=== PATIENT | female | born 1945 | race Hispanic/Latino ===

== ENCOUNTER → 2017-03-29 | Outpatient (CLI) | payer MEDICARE | END | disposition home or self-care (01) | LOC: RAH 10:00 | PROVIDERS: ATTEND Family Medicine | DX: G31.9 Degenerative disease of nervous system, unspecified (principal); H70.93 Unspecified mastoiditis, bilateral; I70.90 Unspecified atherosclerosis | CPT/HCPCS: 70544; 70551 ==

== ENCOUNTER 2017-09-03 09:56 | Emergency (ER) | payer MEDICARE ==
[2017-09-03] MEDS ORDERED: ASPIRIN 81MG TAB.CHEW ONE (10:16)
[2017-09-03 10:18] LABS: BASOPHILS % (AUTO) 0.5 % (0.0-5.0); EOSINOPHILS % (AUTO) 1.5 % (0.0-8.0); HEMATOCRIT 32.4 % (36-48); LYMPHOCYTES % (AUTO) 36.2 % (21.0-51.0); MEAN CORPUSCULAR HEMOGLOBIN 35.5 pg (27.0-33.0); MEAN CORPUSCULAR HGB CONC 34.2 g/dL (32.0-36.0); MEAN CORPUSCULAR VOLUME 103.8 fL (79-99); MONOCYTES % (AUTO) 7.8 % (3.0-13.0); PLATELET COUNT (AUTO) 134 K/uL (130-400); RED BLOOD CELL COUNT(AUTO) 3.12 MIL/uL (4.00-5.50); RED CELL DISTRIBUTION WIDTH 14.2 % (11.0-15.5); WHITE BLOOD COUNT (AUTO) 4.6 K/uL (4.8-10.8)
[2017-09-03 10:34] LABS: CREATININE 1.3 mg/dL (0.5-1.5)
[2017-09-03 10:39] LABS: INR 0.9 (0.85-1.15); PARTIAL THROMBOPLASTIN TIME 24.8 SEC (26.3-35.5); PROTHROMBIN TIME 9.5 SEC (9.6-11.6)
[2017-09-03] MEDS ORDERED: NITROGLYCERIN 0.4 MG SL TAB SL ONE (10:42)
[2017-09-03 10:48] LABS: ALBUMIN 3.5 g/dL (3.5-5.0); BILIRUBIN,TOTAL 0.2 mg/dL (0.2-1.0); CREATINE KINASE MB 1.7 ng/mL (0.5-3.6); TOTAL PROTEIN, SERUM 6.7 g/dL (6.0-8.3)
[2017-09-03] MEDS ORDERED: IOPAMIDOL-370 100 ML VIAL IV ONE (11:57)
[2017-09-03] MEDS ORDERED: MAG HYDROX/AL HYDROX/SIMETH ES 30 ML SUSP UDCUP ONE (13:14)
[2017-09-03] MEDS ORDERED: LIDOCAINE HCL 2% VISCOUS 15 ML UDCUP ONE (13:15)
== END 2017-09-03 15:02 | disposition home or self-care (01) ==
LOC: EDH 09:56
DX: R07.89 Other chest pain (principal); K44.9 Diaphragmatic hernia without obstruction or gangrene; M19.90 Unspecified osteoarthritis, unspecified site; K21.9 Gastro-esophageal reflux disease without esophagitis; I10 Essential (primary) hypertension; Z88.8 Allergy status to other drugs, medicaments and biological substances; Z88.5 Allergy status to narcotic agent; Z90.710 Acquired absence of both cervix and uterus; Z90.49 Acquired absence of other specified parts of digestive tract; Z98.890 Other specified postprocedural states
CPT/HCPCS: 36415; 71045; 71275; 80053; 82550; 82553; 83874; 84484 ×2; 85025; 85610; 85730; 93005 ×2; 94761; 99285; Q9967

== ENCOUNTER → 2018-04-27 | Outpatient (CLI) | payer MEDICARE ==
[~2018-04-27] MED LIST: IOHEXOL 350 MG/ML 100ML INFUS..BTL IV ONE
== END | disposition home or self-care (01) ==
LOC: RAH 08:01
PROVIDERS: ATTEND Internal Medicine Gastroenterology
DX: N28.1 Cyst of kidney, acquired (principal); K44.9 Diaphragmatic hernia without obstruction or gangrene; K57.90 Diverticulosis of intestine, part unspecified, without perforation or abscess without bleeding; I70.90 Unspecified atherosclerosis; M47.815 Spondylosis without myelopathy or radiculopathy, thoracolumbar region
CPT/HCPCS: 74178; Q9967

== ENCOUNTER 2018-06-19 08:56 | Observation (INO) | payer MEDICARE ==
[~2018-06-19] VITALS: Ht 162.6 cm; Wt 106.5 kg
[2018-06-19 09:50] LABS: BASOPHILS % (AUTO) 0.1 % (0.0-5.0); HEMATOCRIT 29.4 % (36-48); LYMPHOCYTES % (AUTO) 8.7 % (21.0-51.0); MEAN CORPUSCULAR HEMOGLOBIN 35.3 pg (27.0-33.0); MONOCYTES % (AUTO) 9.7 % (3.0-13.0); NEUTROPHILS % (AUTO) 80.5 % (40.0-77.0); PLATELET COUNT (AUTO) 108 K/uL (130-400); RED BLOOD CELL COUNT(AUTO) 2.75 MIL/uL (4.00-5.50); RED CELL DISTRIBUTION WIDTH 15.6 % (11.0-15.5)
[2018-06-19 10:08] LABS: INR 0.95 (0.85-1.15); PARTIAL THROMBOPLASTIN TIME 26.4 SEC (26.3-35.5)
[2018-06-19 10:26] LABS: ALBUMIN 3.4 g/dL (3.5-5.0); BILIRUBIN,TOTAL 1.3 mg/dL (0.2-1.0); CREATININE 3.7 mg/dL (0.5-1.5); TOTAL PROTEIN, SERUM 6.4 g/dL (6.0-8.3)
[2018-06-19] MEDS ORDERED: DEXTROSE 50%-WATER 50 ML DISP.SYRIN IV ONE (11:07)
[2018-06-19] MEDS ORDERED: SODIUM POLYSTYRENE SULFONATE 15 GM/60 ML ML ONE (11:07)
[2018-06-19] MEDS ORDERED: CALCIUM GLUCONATE 1 GM/10 ML VIAL IV ONE (11:07)
[2018-06-19] MEDS ORDERED: INSULIN HUMULIN R 100 UNIT/ML 3ML ONE (11:09)
[2018-06-19] MEDS ORDERED: IPRATROPIUM/ALBUTEROL SULFATE 3 ML SOLUTION IH ONE (14:54)
[2018-06-19 15:15] VITALS: BP 129/62
[2018-06-19 16:00] VITALS: BP 89/43
[2018-06-19] MEDS ORDERED: SODIUM CHLORIDE 0.9% 1000ML 1,000 ML IV SCH (16:00)
[2018-06-19] MEDS ORDERED: HYDRALAZINE HCL 20 MG/ML VIAL IV PRN (16:00)
[2018-06-19] MEDS ORDERED: RANI300C PO (16:29)
[2018-06-19] MEDS ORDERED: CYCL30DR OP (16:29)
[2018-06-19] MEDS ORDERED: BUTA-256 PO (16:29)
[2018-06-19] MEDS ORDERED: DICL2100G TP (16:29)
[2018-06-19] MEDS ORDERED: NAPR-1023 PO (16:29)
[2018-06-19] MEDS ORDERED: DONE10TA43 PO (16:29)
[2018-06-19] MEDS ORDERED: FERR325T22 PO (16:29)
[2018-06-19] MEDS ORDERED: LEVO50TA11 PO (16:29)
[2018-06-19] MEDS ORDERED: BENZ-51 PO (16:29)
[2018-06-19] MEDS ORDERED: PANT40TA25 PO (16:29)
[2018-06-19] MEDS ORDERED: ERGO500014 PO (16:29)
[2018-06-19] MEDS ORDERED: MEMA10TA20 PO (16:29)
[2018-06-19] MEDS ORDERED: OMEP40CA37 PO (16:29)
[2018-06-19] MEDS ORDERED: ASPI-1197 PO (16:29)
[2018-06-19] MEDS ORDERED: METO-409 PO (16:29)
[2018-06-19] MEDS ORDERED: SUCR1TAB PO (16:29)
[2018-06-19] MEDS ORDERED: FLUT16H NASAL (16:29)
[2018-06-19] MEDS ORDERED: ONDA4TAB9 PO (16:29)
[2018-06-19] MEDS ORDERED: FOLI1TAB85 PO (16:29)
[2018-06-19] MEDS ORDERED: CITA-107 PO (16:29)
[2018-06-19] MEDS ORDERED: ISOS30TA6 PO (16:29)
[2018-06-19] MEDS ORDERED: TRAZ-185 PO (16:29)
[2018-06-19] MEDS ORDERED: MECL-111 PO (16:29)
[2018-06-19] MEDS ORDERED: LORA2TAB2 PO (16:29)
[2018-06-19] MEDS ORDERED: POTA20TA82 PO (16:29)
[2018-06-19] MEDS ORDERED: VALS1TAB81 PO (16:29)
[2018-06-19] MEDS ORDERED: NITR0.4T50 SL (16:29)
[2018-06-19] MEDS ORDERED: GABA-531 PO (16:29)
[2018-06-19] MEDS ORDERED: ALBU18HF7 IN (16:29)
[2018-06-19] MEDS ORDERED: ROSU20TA30 PO (16:29)
[2018-06-19] MEDS ORDERED: SODIUM BICARB 50MEQ 50ML VIAL IV SCH (16:30)
[2018-06-19] MEDS: INSULIN R PO SS1 SQ SCH ×2 (16:30→20:34)
[2018-06-19] MEDS ORDERED: ASPIRIN 81MG TAB.CHEW PO SCH (16:45)
[2018-06-19] MEDS ORDERED: BENZONATATE 100 MG CAPSULE PO PRN (16:45)
[2018-06-19] MEDS ORDERED: NITROGLYCERIN 0.4 MG SL TAB SL PRN (16:45)
[2018-06-19] MEDS ORDERED: TRAZODONE HCL 50 MG TAB PO PRN (16:45)
[2018-06-19 16:50] LABS: ABG HCO3 15.7 mmol/L (21.0-28.0); ABG OXYGEN SATURATION 93.7 % (95.0-99.0); ABG PCO2 42 mmHg (32-45)
[2018-06-19 16:54] VITALS: BP 110/75
[2018-06-19 17:01] VITALS: BP 119/65
[2018-06-19] MEDS ORDERED: SODIUM BICARB 50MEQ 50ML VIAL IV ONE (17:15)
[2018-06-19] MEDS ORDERED: SODIUM CHLORIDE 0.9% 1000ML 500 ML IV ONE (17:15)
[2018-06-19] MEDS: HEPARIN SODIUM 5000UNIT/ML 1ML VIAL SQ SCH (17:26)
[2018-06-19] MEDS ORDERED: FOLIC ACID 1 MG TABLET PO SCH (17:45)
[2018-06-19] MEDS ORDERED: THIAMINE HCL 100 MG TABLET PO SCH (17:45)
[2018-06-19] MEDS: SODIUM BICARB 8.4% 50ML SYRING 200 MEQ in DEXTROSE 5%-WATER 950 ML IV SCH (18:16)
[2018-06-19 18:48] LABS: APPEARANCE,URINE Clear (CLEAR); BILIRUBIN,URINE Negative (NEGATIVE); COLOR,URINE Yellow (YELLOW); GLUCOSE, URINE (UA) Negative (NEGATIVE); KETONES,URINE Negative (NEGATIVE); LEUKOCYTE ESTERASE ,URINE Negative (NEGATIVE); NITRATE,URINE Negative (NEGATIVE); OCCULT BLOOD,URINE Negative (NEGATIVE); PROTEIN,URINE Negative (NEGATIVE); UROBILINOGEN,URINE 0.2 mg/dL (0.2-1.0)
[2018-06-19 18:56] LABS: AMPHET/METH SCREEN,URINE NEGATIVE (NEGATIVE); BARBITURATE SCREEN, URINE POSITIVE (NEGATIVE); BENZODIAZEPINES SCREEN,URINE NEGATIVE (NEGATIVE); CANNABINOID SCREEN,URINE NEGATIVE (NEGATIVE); COCAINE SCREEN,URINE NEGATIVE (NEGATIVE); OPIATE SCREEN,URINE NEGATIVE (NEGATIVE); PHENCYCLIDINE SCREEN,URINE NEGATIVE (NEGATIVE)
--- NOTE | 2018-06-19 19:15 | NUR ---
ASSESSMENT ASSUMED CARE. AA&OX2. REORIENTED TO DATE & TIME. NO DISTRESS NOTED. TELE STATUS. SINUS RHYTHM HR 68. DAUGHTER AT BEDSIDE. INSTRUCTED ON PLAN OF CARE. CLEMENT CATHETER SECURE & PATENT. CALL LIGHT WITHIN REACH. INSTRUCTED TO CALL FOR ASSISTANCE.
[2018-06-19 19:27] VITALS: BP 97/46
[2018-06-19] MEDS ORDERED: PHARMACY COMMUNICATION MISC SCH (20:15)
[2018-06-19] MEDS: SUCRALFATE 1 GM TABLET PO SCH (20:27)
[2018-06-19] MEDS: SODIUM BICARBONATE 650 MG TAB PO SCH (20:27)
[2018-06-19] MEDS: GABAPENTIN 100 MG CAPSULE PO SCH (20:27)
[2018-06-19] MEDS: DONEPEZIL HCL 5 MG TAB PO SCH (20:27)
[2018-06-19] MEDS ORDERED: METOPROLOL TARTRATE 25 MG TAB PO SCH (21:00)
[2018-06-19] MEDS: **HM**(Cyclosporine (Restasis) 1 EACH OP SCH (21:00)
[2018-06-19] MEDS: MEMANTINE HCL 5 MG TABLET PO SCH (21:44)
--- NOTE | 2018-06-20 | NUR ---
ASSESSMENT RESTING, EYES CLOSED. NO DISTRESS NOTED. DAUGHTER NEXT TO PATIET'S BED ON PULL OUT COUCH. LIGHTS DIMMED.
[2018-06-20] MEDS: ACETAMINOPHEN 325 MG TAB PO PRN ×2 (00:13→20:57)
[2018-06-20 00:54] VITALS: BP 105/59
[2018-06-20 04:00] VITALS: BP 108/59
[2018-06-20 04:07] LABS: HEMATOCRIT 24.9 % (36-48); MEAN CORPUSCULAR HEMOGLOBIN 35.3 pg (27.0-33.0); MEAN CORPUSCULAR HGB CONC 33.6 g/dL (32.0-36.0); MEAN CORPUSCULAR VOLUME 104.9 fL (79-99); PLATELET COUNT (AUTO) 90 K/uL (130-400); RED BLOOD CELL COUNT(AUTO) 2.37 MIL/uL (4.00-5.50); RED CELL DISTRIBUTION WIDTH 15.5 % (11.0-15.5); WHITE BLOOD COUNT (AUTO) 5.2 K/uL (4.8-10.8)
[2018-06-20 04:15] LABS: INR 0.97 (0.85-1.15); PROTHROMBIN TIME 10.2 SEC (9.6-11.6)
[2018-06-20 04:34] LABS: CARBON DIOXIDE 26 mmol/L (21-32); CHLORIDE 107 mmol/L (101-111); GLOMERULAR FILTR. RATE CALC 16 mL/min (>60); GLUCOSE,RANDOM 107 mg/dL (70-105); MYOGLOBIN 384 ng/mL (10-92); PHOSPHORUS 5.3 mg/dL (2.5-4.9); POTASSIUM 4.5 mmol/L (3.5-5.1); SODIUM SERUM 143 mmol/L (136-145); THYROID STIMULATING HORMONE 0.67 uIU/mL (0.36-3.74); TROPONIN I < 0.04 ng/mL (0.00-0.06); UREA NITROGEN, BLOOD 63 mg/dL (7-18)
[2018-06-20] MEDS: HEPARIN SODIUM 5000UNIT/ML 1ML VIAL SQ SCH ×2 (04:35→16:38)
[2018-06-20 04:40] LABS: % IRON SATURATION 8.9 % (22-44)
[2018-06-20 04:43] LABS: CREATINE KINASE, TOTAL 767 U/L (21-232)
[2018-06-20] MEDS: LEVOTHYROXINE 50 MCG TABLET PO SCH ×2 (05:56→07:13)
[2018-06-20] MEDS: SUCRALFATE 1 GM TABLET PO SCH ×4 (07:12→20:55)
[2018-06-20] MEDS: INSULIN R PO SS1 SQ SCH ×4 (07:18→20:43)
[2018-06-20] MEDS ORDERED: LEVOTHYROXINE 50 MCG TABLET PO SCH (07:30)
--- NOTE | 2018-06-20 07:30 | NUR ---
PT IS AWAKE ALERT AND ORIENTED X3, PT HAS BEEN WITHOUT ANY COMPLAINTS AND STATES THAT SHE THINKS SHE IS GOING TO BE DISCHARGED TODAY. PT REMAINS WITH CLEMENT CATHETER AND HAS CLEAR URINE.
[2018-06-20 08:01] VITALS: BP 116/66
[2018-06-20] MEDS: CITALOPRAM 20 MG TABLET PO SCH (08:12)
[2018-06-20] MEDS: ISOSORBIDE MONO 30MG TAB SR PO SCH (08:12)
[2018-06-20] MEDS: FOLIC ACID/VITAMIN B COMP W-C 1 MG CAPSULE PO SCH (08:13)
[2018-06-20] MEDS: SODIUM BICARBONATE 650 MG TAB PO SCH ×3 (08:13→20:58)
[2018-06-20] MEDS: PANTOPRAZOLE SODIUM 40 MG TABLET.DR PO SCH (08:13)
[2018-06-20] MEDS: FOLIC ACID 1 MG TABLET PO SCH (08:13)
[2018-06-20] MEDS: GABAPENTIN 100 MG CAPSULE PO SCH ×2 (08:13→20:55)
[2018-06-20] MEDS: THIAMINE HCL 100 MG TABLET PO SCH (08:14)
[2018-06-20] MEDS ORDERED: NON-FORMULARY MEDICATION 1 EACH (Metoprolol Succinate 150 MG) PO SCH (09:00)
[2018-06-20] MEDS: **HM**(Cyclosporine (Restasis) 1 EACH OP SCH ×2 (09:00→21:00)
[2018-06-20 09:34] VITALS: BP 142/73
[2018-06-20] MEDS: SODIUM BICARB 8.4% 50ML SYRING 200 MEQ in DEXTROSE 5%-WATER 950 ML IV SCH (10:57)
--- NOTE | 2018-06-20 11:15 | NUR ---
PT IS TO BE TRANSFERRED TO ROOM 228, AND REPORT WILL BE GIVEN TO MIMI ANNA.
[2018-06-20] MEDS: MEMANTINE HCL 5 MG TABLET PO SCH ×2 (11:37→20:55)
--- NOTE | 2018-06-20 11:40 | NUR ---
ARRIVED TO ROOM 228 PT IS AAOX4 DENIES CP DENIES SOB DENIES NV NO COMPLAINTS SITTING UPRIGHT AT BEDSIDE. FAMILY IS AT BEDSIDE, CALL LIGHT WITHIN REACH.
[2018-06-20] MEDS ORDERED: COMPOUND IV MISC 1 EACH IVSOLN MISC PRN (14:00)
[2018-06-20 15:36] VITALS: BP 110/40
[2018-06-20 19:59] VITALS: BP 137/99
[2018-06-20] MEDS: DONEPEZIL HCL 5 MG TAB PO SCH (20:55)
[2018-06-20] MEDS ORDERED: IRON SUCROSE COMPLEX 100 MG in SODIUM CHLORIDE 0.9% 50 ML IV SCH (21:00)
--- NOTE | 2018-06-20 21:20 | NUR ---
NEW IV STARTED 20G TO LEFT FOREARM.
--- NOTE | 2018-06-20 22:00 | NUR ---
PT STATS HEADACHE. GIVEN TYLENOL PRN. REQUESTED TRAZADONE FOR SLEEP. PT STABLE. STATES FEELING MUCH BETTER COMPARED TO ADMISSION DATE. ABLE TO TAKE MEDICATIONS DIRECTED. ABLE TO AMBULATE WITH MINIMAL ASSIST.
[2018-06-21 01:43] VITALS: BP 133/77
[2018-06-21 04:21] LABS: HEMATOCRIT 24.3 % (36-48); MEAN CORPUSCULAR HEMOGLOBIN 35.9 pg (27.0-33.0); MEAN CORPUSCULAR HGB CONC 34.2 g/dL (32.0-36.0); MEAN CORPUSCULAR VOLUME 104.8 fL (79-99); NUCLEATED RED BLOOD CELLS 0.1 % (0.0-0.19); PLATELET COUNT (AUTO) 98 K/uL (130-400); RED BLOOD CELL COUNT(AUTO) 2.32 MIL/uL (4.00-5.50); RED CELL DISTRIBUTION WIDTH 15.1 % (11.0-15.5); WHITE BLOOD COUNT (AUTO) 4.2 K/uL (4.8-10.8)
[2018-06-21 04:27] VITALS: BP 130/68
[2018-06-21 05:13] LABS: ALBUMIN 2.6 g/dL (3.5-5.0); BILIRUBIN,TOTAL 0.2 mg/dL (0.2-1.0); CREATININE 1.4 mg/dL (0.5-1.5); MAGNESIUM 2.3 mg/dL (1.80-2.40); PHOSPHORUS 2.9 mg/dL (2.5-4.9); POTASSIUM 4.2 mmol/L (3.5-5.1); TOTAL PROTEIN, SERUM 5.5 g/dL (6.0-8.3)
[2018-06-21] MEDS: HEPARIN SODIUM 5000UNIT/ML 1ML VIAL SQ SCH (05:59)
[2018-06-21] MEDS: INSULIN R PO SS1 SQ SCH ×2 (06:32→11:30)
[2018-06-21] MEDS: LEVOTHYROXINE 50 MCG TABLET PO SCH (06:32)
[2018-06-21] MEDS: SUCRALFATE 1 GM TABLET PO SCH ×2 (06:32→11:44)
[2018-06-21] MEDS: THIAMINE HCL 100 MG TABLET PO SCH (07:10)
[2018-06-21] MEDS: PANTOPRAZOLE SODIUM 40 MG TABLET.DR PO SCH (07:10)
[2018-06-21] MEDS: GABAPENTIN 100 MG CAPSULE PO SCH (07:10)
[2018-06-21] MEDS: ISOSORBIDE MONO 30MG TAB SR PO SCH (07:10)
[2018-06-21] MEDS: **HM**(Cyclosporine (Restasis) 1 EACH OP SCH (07:10)
[2018-06-21] MEDS: FOLIC ACID 1 MG TABLET PO SCH (07:10)
[2018-06-21] MEDS: SODIUM BICARBONATE 650 MG TAB PO SCH (07:10)
[2018-06-21] MEDS: MEMANTINE HCL 5 MG TABLET PO SCH (07:10)
[2018-06-21] MEDS: FOLIC ACID/VITAMIN B COMP W-C 1 MG CAPSULE PO SCH (07:10)
[2018-06-21] MEDS: CITALOPRAM 20 MG TABLET PO SCH (07:10)
--- NOTE | 2018-06-21 08:00 | NUR ---
ASSESSMENT PT IS AAOX4 DENIES CP DENIES SOB DENIES NV NO COMPLAINTS SITTING UPRIGHT IN BED. AM MEDS TAKEN. CALL LIGHT WITHIN REACH.
[2018-06-21 08:06] VITALS: BP 166/81
[2018-06-21] MEDS ORDERED: LORA2TAB2 PO (08:40)
[2018-06-21 11:34] VITALS: BP 158/93
[2018-06-21] MEDS ORDERED: PHARMACY COMMUNICATION MISC SCH (12:45)
--- NOTE | 2018-06-21 12:47 | NUR ---
MD ROUNDS DR SAHU AND DR FUNES ROUNDED. OK TO DC HOME, PENDING 1X DOSE VENOFER 300MG PER DR SAHU. PATIENT AWARE AND AGREES.
--- NOTE | 2018-06-21 12:50 | NUR ---
DC PLAN VISITED WITH PATIENT. PATIENT LIVES ALONE. FAMILY HELPS. SEMI INDEPENDENT ABLE TO PERFORM ADL'S. PATIENT HAS PROVIDER 4 HRS A DAY BY DAUGHTER. NO DME'S. FEELS SAFE TO RETURN HOME. Addendum: 06/21/18 at 1252 by MARK LUEVANO RN CM Amended: Links added.
[2018-06-21] MEDS: IRON SUCROSE COMPLEX 300 MG in SODIUM CHLORIDE 0.9% 100 ML IVP SCH ×2 (13:25→15:03)
--- NOTE | 2018-06-21 15:35 | NUR ---
DC TO HOME ALL QUESTIONS ANSWERED, PIV REMOVED CATH TIP INTACT. TELE PACK REMOVED. AGREES TO TAKE MEDS ORDERED AND FOLLOW UP WITH MD ORDERED. DOWN VIA WC TO PRIVATE VEHICLE.
== END 2018-06-21 15:45 | disposition home or self-care (01) ==
LOC: EDH 08:56 → EDHIP 13:35 → 2CH 15:17 → 2DH 06-20 11:41
PROVIDERS: ADMIT Internal Medicine Critical Care Medicine; ATTEND Internal Medicine Critical Care Medicine
DX: N17.9 Acute kidney failure, unspecified (principal); N18.9 Chronic kidney disease, unspecified; I12.9 Hypertensive chronic kidney disease with stage 1 through stage 4 chronic kidney disease, or unspecified chronic kidney disease; E11.21 Type 2 diabetes mellitus with diabetic nephropathy; E11.22 Type 2 diabetes mellitus with diabetic chronic kidney disease; R55 Syncope and collapse; I25.10 Atherosclerotic heart disease of native coronary artery without angina pectoris; D50.9 Iron deficiency anemia, unspecified; E03.9 Hypothyroidism, unspecified; E66.9 Obesity, unspecified; E86.0 Dehydration; E87.2 Acidosis; E87.5 Hyperkalemia; M62.82 Rhabdomyolysis; I42.9 Cardiomyopathy, unspecified; J42 Unspecified chronic bronchitis; G47.30 Sleep apnea, unspecified; F03.90 Unspecified dementia, unspecified severity, without behavioral disturbance, psychotic disturbance, mood disturbance, and anxiety; Z82.49 Family history of ischemic heart disease and other diseases of the circulatory system; Z90.710 Acquired absence of both cervix and uterus; Z90.49 Acquired absence of other specified parts of digestive tract; Z79.899 Other long term (current) drug therapy; Z96.659 Presence of unspecified artificial knee joint
CPT/HCPCS: 36415 ×3; 36600; 70450; 71045; 76700; 80048; 80053 ×2; 80305; 81003; 82550 ×3; 82803; 82948 ×8; 83540; 83550; 83605; 83690; 83735 ×2; 83874; 84100 ×2; 84443; 84484 ×2; 85025; 85027 ×2; 85610 ×2; 85730; 93005; 94640; 96361; 96365; 96366 ×3; 96372 ×3; 96376; 99291; A4357; G0378 ×50; J0610; J1644 ×4; J1756 ×3; J1815; J3490 ×3; J7030; J7070 ×2

== ENCOUNTER 2018-07-26 08:40 | Emergency (ER) | payer MEDICARE ==
[~2018-07-26 08:40] MED LIST changes: +ALBU18HF7 IN; +ASPI-1197 PO; +BENZ-51 PO; +CITA-107 PO; +CYCL30DR OP; +DONE10TA43 PO; +FLUT16H NASAL; +FOLI1TAB85 PO; -IOHEXOL 350 MG/ML 100ML INFUS..BTL IV ONE; +ISOS30TA6 PO; +LEVO50TA11 PO; +LORA2TAB2 PO; +MEMA10TA20 PO; +METO-409 PO; +NITR0.4T50 SL; +OMEP40CA37 PO; +ONDA4TAB9 PO; +SUCR1TAB PO; +TRAZ-185 PO
[2018-07-26 09:00] LABS: BASOPHILS % (AUTO) 0.3 % (0.0-5.0); EOSINOPHILS % (AUTO) 0.3 % (0.0-8.0); LYMPHOCYTES % (AUTO) 6.9 % (21.0-51.0); MEAN CORPUSCULAR HEMOGLOBIN 35.2 pg (27.0-33.0); MEAN CORPUSCULAR HGB CONC 33.8 g/dL (32.0-36.0); MEAN CORPUSCULAR VOLUME 104.1 fL (79-99); MONOCYTES % (AUTO) 4.6 % (3.0-13.0); NEUTROPHILS % (AUTO) 87.9 % (40.0-77.0); PLATELET COUNT (AUTO) 117 K/uL (130-400); RED BLOOD CELL COUNT(AUTO) 3.08 MIL/uL (4.00-5.50); WHITE BLOOD COUNT (AUTO) 4.7 K/uL (4.8-10.8)
[2018-07-26 09:08] LABS: CREATININE 1.1 mg/dL (0.5-1.5); POTASSIUM 3.6 mmol/L (3.5-5.1)
[2018-07-26 09:14] LABS: ALBUMIN 3.4 g/dL (3.5-5.0); BILIRUBIN,DIRECT 0.1 mg/dL (0.0-0.3); BILIRUBIN,TOTAL 0.4 mg/dL (0.2-1.0); TOTAL PROTEIN, SERUM 6.7 g/dL (6.0-8.3)
[2018-07-26] MEDS ORDERED: ONDANSETRON HCL 4 MG/2 ML VIAL ONE (09:16)
[2018-07-26] MEDS ORDERED: DICYCLOMINE HCL 10 MG/ML 2ML AMP IM ONE (09:17)
== END 2018-07-26 11:49 | disposition home or self-care (01) ==
LOC: EDH 08:40
DX: K52.9 Noninfective gastroenteritis and colitis, unspecified (principal); I10 Essential (primary) hypertension; K21.9 Gastro-esophageal reflux disease without esophagitis; M19.90 Unspecified osteoarthritis, unspecified site; Z90.710 Acquired absence of both cervix and uterus; Z88.2 Allergy status to sulfonamides; Z88.5 Allergy status to narcotic agent
CPT/HCPCS: 36415; 80048; 80076; 83690; 85025; 96361; 96374; 96375; 99284; J0500; J2405

== ENCOUNTER 2019-08-11 13:32 | Emergency (ER) | payer OTHER, MEDICARE ==
[2019-08-11] MEDS ORDERED: SODIUM CHLORIDE 0.9% 500ML 500 ML IV ONE (13:33)
[2019-08-11] MEDS ORDERED: NITROGLYCERIN 1GM/1 INCH PACKET TD ONE (13:44)
[2019-08-11] MEDS ORDERED: MECLIZINE HCL 25 MG TABLET ONE (14:19)
== END 2019-08-11 15:46 | disposition home or self-care (01) ==
LOC: EDH 13:32
DX: I95.2 Hypotension due to drugs (principal); T46.5X5A Adverse effect of other antihypertensive drugs, initial encounter; R21 Rash and other nonspecific skin eruption; D64.9 Anemia, unspecified; N19 Unspecified kidney failure; I10 Essential (primary) hypertension; K21.9 Gastro-esophageal reflux disease without esophagitis; M19.90 Unspecified osteoarthritis, unspecified site; F03.90 Unspecified dementia, unspecified severity, without behavioral disturbance, psychotic disturbance, mood disturbance, and anxiety; Z88.2 Allergy status to sulfonamides; Z88.6 Allergy status to analgesic agent; Y92.89 Other specified places as the place of occurrence of the external cause
CPT/HCPCS: 36415; 80048; 85025; 93005; 99284; J7040

== ENCOUNTER → 2020-07-12 | Outpatient (CLI) | payer OTHER, MEDICARE ==
[~2020-07-12] MED LIST changes: -ALBU18HF7 IN; +ALBU8.5H8 IH; -BENZ-51 PO; -CITA-107 PO; +CITA40TA14 PO; +COLE1TAB2 PO; -CYCL30DR OP; +DRISDOL PO; +FERR325T22 PO; -FLUT16H NASAL; +FOLI0.8T3 PO; -FOLI1TAB85 PO; +HYOS-28 PO; -ISOS30TA6 PO; +ISOS30TA92 PO; -LORA2TAB2 PO; +LORA2TAB80 PO; -MEMA10TA20 PO; +MEMA10TA55 PO; +METO-391 PO; -METO-409 PO; -OMEP40CA37 PO; -ONDA4TAB9 PO; +PANT40TA PO; +ROSU20TA31 PO; -SUCR1TAB PO; +TRAM50TA4 PO; -TRAZ-185 PO; +TRAZ-187 PO; +VITA100T5 PO
== END | disposition home or self-care (01) ==
LOC: RAH 08:39
PROVIDERS: ATTEND Student in an Organized Health Care Education/Training Program
DX: K21.9 Gastro-esophageal reflux disease without esophagitis (principal); K44.9 Diaphragmatic hernia without obstruction or gangrene
CPT/HCPCS: 74240

== ENCOUNTER 2021-01-04 09:28 | Emergency (ER) | payer OTHER, MEDICARE ==
[~2021-01-04] VITALS: Ht 162.6 cm; Wt 101.6 kg
[2021-01-04 09:55] LABS: APPEARANCE,URINE Cloudy (CLEAR); BILIRUBIN,URINE Small (NEGATIVE); COLOR,URINE Dark Yellow (YELLOW); GLUCOSE, URINE (UA) Negative (NEGATIVE); KETONES,URINE Trace mg/dL (NEGATIVE); LEUKOCYTE ESTERASE ,URINE Trace (NEGATIVE); NITRATE,URINE Negative (NEGATIVE); OCCULT BLOOD,URINE Nonhemolyzed Trace (NEGATIVE); PH,URINE 5.5 (5.0-8.0); PROTEIN,URINE 300 mg/dL (NEGATIVE)
[2021-01-04 10:10] LABS: BASOPHILS % (AUTO) 0.3 % (0.0-5.0); EOSINOPHILS % (AUTO) 1.2 % (0.0-8.0); HEMATOCRIT 33.2 % (36-48); LYMPHOCYTES % (AUTO) 41.8 % (21.0-51.0); MEAN CORPUSCULAR HGB CONC 33.1 g/dL (32.0-36.0); MEAN CORPUSCULAR VOLUME 102.5 fL (79-99); MONOCYTES % (AUTO) 7.2 % (3.0-13.0); NEUTROPHILS % (AUTO) 49.5 % (40.0-77.0); PLATELET COUNT (AUTO) 131 K/uL (130-400); RED BLOOD CELL COUNT(AUTO) 3.24 MIL/uL (4.00-5.50); RED CELL DISTRIBUTION WIDTH 14.7 % (11.0-15.5); WHITE BLOOD COUNT (AUTO) 3.5 K/uL (4.8-10.8)
[2021-01-04 10:15] LABS: CREATININE 1.2 mg/dL (0.5-1.5); POTASSIUM 3.6 mmol/L (3.5-5.1)
[2021-01-04 10:19] LABS: ALBUMIN 3.9 g/dL (3.5-5.0); BILIRUBIN,TOTAL 0.3 mg/dL (0.2-1.0); TOTAL PROTEIN, SERUM 7.2 g/dL (6.0-8.3)
[2021-01-04 10:30] LABS: BACTERIA,URINE Few /HPF (None Seen); RBC,URINE 0-1 /HPF (0-1)
[2021-01-04] MEDS ORDERED: ONDANSETRON 4MG INJ IVP SCH (10:30)
[2021-01-04] MEDS ORDERED: 0.9% NACL 250ML 250 ML IV SCH (10:30)
[2021-01-04] MEDS ORDERED: FENTANYL 2500MCG+NS 250ML 250 ML IV SCH (10:30)
[2021-01-04] MEDS ORDERED: FENTANYL CITRATE PF 50 MCG/1 ML 2ML VIAL IVP SCH ×2 (10:30→11:00)
[2021-01-04] MEDS ORDERED: FENTANYL CITRATE PF 50 MCG/1 ML 2ML VIAL ONE (10:42)
[2021-01-04] MEDS ORDERED: ONDA4TAB10 PO (11:19)
[2021-01-04 11:52] VITALS: BP 156/80
== END 2021-01-04 11:54 | disposition home or self-care (01) ==
LOC: EDH 09:28
DX: E86.0 Dehydration (principal); R11.2 Nausea with vomiting, unspecified; R10.9 Unspecified abdominal pain; R07.89 Other chest pain; E66.9 Obesity, unspecified; E03.9 Hypothyroidism, unspecified; E78.00 Pure hypercholesterolemia, unspecified; I11.0 Hypertensive heart disease with heart failure; I50.9 Heart failure, unspecified; J44.9 Chronic obstructive pulmonary disease, unspecified; Z68.38 Body mass index [BMI] 38.0-38.9, adult; Z88.5 Allergy status to narcotic agent; Z88.2 Allergy status to sulfonamides; Z90.49 Acquired absence of other specified parts of digestive tract; Z79.899 Other long term (current) drug therapy; Z79.82 Long term (current) use of aspirin
CPT/HCPCS: 36415; 71045; 74176; 80053; 81001; 82150; 82550; 83690; 83880; 84484; 85025; 93005; 96374; 96375; 99285; J2405; J3010

== ENCOUNTER → 2022-03-11 | Outpatient (CLI) | payer OTHER, MEDICARE ==
[~2022-03-11] MED LIST changes: +ONDA4TAB10 PO
== END | disposition home or self-care (01) ==
LOC: RAH 08:43
PROVIDERS: ATTEND Internal Medicine
DX: K21.9 Gastro-esophageal reflux disease without esophagitis (principal)
CPT/HCPCS: 74240

== ENCOUNTER 2023-01-25 06:13 | Day surgery (SDC) | payer OTHER, MEDICARE ==
[2023-01-21 10:34] LABS: ADD UA MICROSCOPIC YES
[2023-01-21 10:36] VITALS: BP 174/92; PULSE 52; RESP 17
[2023-01-21 10:38] LABS: APPEARANCE,URINE CLEAR (CLEAR); BACTERIA,URINE RARE /HPF (None Seen); BILIRUBIN,URINE NEGATIVE (NEGATIVE); COLOR,URINE YELLOW (YELLOW); GLUCOSE, URINE (UA) NEGATIVE (NEGATIVE); KETONES,URINE NEGATIVE (NEGATIVE); LEUKOCYTE ESTERASE ,URINE 75 Leu/uL (NEGATIVE); MUCUS,URINE RARE LPF (None Seen); NITRATE,URINE NEGATIVE (NEGATIVE); OCCULT BLOOD,URINE NEGATIVE (NEGATIVE); PH,URINE 6.5 (5.0-8.0); PROTEIN,URINE 70 mg/dL (NEGATIVE); SQUAMOUS EPITHELIAL CELL,UR MOD /HPF (0-2); UNCLASSIFIED CRYSTAL 3 /HPF (None Seen); UROBILINOGEN,URINE 0.2 mg/dL (0.2-1.0)
[2023-01-21 10:42] LABS: BASOPHILS # (AUTO) 0.01 K/uL (0.00-0.20); BASOPHILS % (AUTO) 0.2 % (0.0-5.0); EOSINOPHILS # (AUTO) 0.04 K/uL (0.00-0.70); LYMPHOCYTES # (AUTO) 1.3 K/uL (1.0-4.8); LYMPHOCYTES % (AUTO) 32.4 % (21.0-51.0); MEAN CORPUSCULAR HGB CONC 31.8 g/dL (32.0-36.0); MEAN CORPUSCULAR VOLUME 103.8 fL (79-99); MONOCYTES # (AUTO) 0.4 K/uL (0.1-1.0); MONOCYTES % (AUTO) 9.5 % (3.0-13.0); NEUTROPHILS # (AUTO) 2.3 K/uL (1.8-7.7); NEUTROPHILS % (AUTO) 56.9 % (40.0-77.0); PLATELET COUNT (AUTO) 130 K/uL (130-400); RED BLOOD CELL COUNT(AUTO) 3.18 MIL/uL (4.00-5.50); RED CELL DISTRIBUTION WIDTH 14.3 % (11.0-15.5); WHITE BLOOD COUNT (AUTO) 4.1 K/uL (4.8-10.8)
[2023-01-21 10:52] LABS: CREATININE 1.2 mg/dL (0.5-1.5); POTASSIUM 4.1 mmol/L (3.5-5.1)
[2023-01-21 10:55] LABS: INR 0.94 (0.85-1.15); PROTHROMBIN TIME 10.9 SEC (9.6-11.6)
[2023-01-21 10:57] LABS: PARTIAL THROMBOPLASTIN TIME 29.9 SEC (26.3-35.5)
[2023-01-21 11:30] LABS: B-TYPE NATRIURETIC PEPTIDE 78 pg/mL (0-100)
[2023-01-25] VITALS (7 sets, daily range): BP systolic 111–190; BP diastolic 63–91; PULSE 46–59; RESP 14–18
[~2023-01-25] VITALS: Ht 162.6 cm; Wt 97.8 kg
[~2023-01-25 06:13] MED LIST changes: +ACET-2743 PO; +AEC81 PO; -ASPI-1197 PO; +CHOL2000 PO; -COLE1TAB2 PO; +DOCU100C33 PO; -DONE10TA43 PO; -DRISDOL PO; +GARL1000 PO; -HYOS-28 PO; -ISOS30TA92 PO; +ISOS60TA77 PO; +LEVO50CA4 PO; -LEVO50TA11 PO; -LORA2TAB80 PO; +MECL-226 PO; +OMEG100014 PO; +ONDA-104 SL; -ONDA4TAB10 PO; -PANT40TA PO; +POTA-364 PO; -ROSU20TA31 PO; -TRAM50TA4 PO; -TRAZ-187 PO; -VITA100T5 PO
[2023-01-25] MEDS ORDERED: 0.9%NACL 1000ML 1,000 ML IV ONE (07:36)
[2023-01-25] MEDS ORDERED: FENTANYL CITRATE PF 50 MCG/1 ML 2ML VIAL ONE (08:48)
[2023-01-25] MEDS ORDERED: VERAPAMIL HCL 2.5 MG/ML VIAL ONE (08:49)
[2023-01-25] MEDS ORDERED: MIDAZOLAM HCL 1 MG/ML 2ML VIAL ONE (08:49)
[2023-01-25] MEDS ORDERED: HEPARIN 10,000 UNIT/10ML (1,000 UNIT/ML) VIAL ONE (08:49)
[2023-01-25] MEDS ORDERED: LIDOCAINE HCL-MPF 2% 5ML VIAL ONE (08:50)
[2023-01-25] MEDS ORDERED: IOHEXOL 350 MG/ML 100ML INFUS..BTL IV ONE (08:50)
[2023-01-25] MEDS ORDERED: ATROPINE 1MG SYG IVP ONE (09:00)
[2023-01-25] MEDS ORDERED: IOHEXOL-350 50ML VIAL IV ONE (09:32)
[2023-01-25] MEDS ORDERED: 0.9%NACL 1000ML 1,000 ML IV SCH (10:00)
[2023-01-25] MEDS ORDERED: ACETAMINOPHEN WITH CODEINE 1 TAB TAB PO PRN (10:00)
[2023-01-25] MEDS ORDERED: PHARMACY COMMUNICATION MISC SCH (10:30)
== END 2023-01-25 12:10 | disposition home or self-care (01) ==
LOC: DAH 06:13
PROVIDERS: ATTEND Internal Medicine
DX: I25.119 Atherosclerotic heart disease of native coronary artery with unspecified angina pectoris (principal); I10 Essential (primary) hypertension; R00.1 Bradycardia, unspecified; G47.33 Obstructive sleep apnea (adult) (pediatric); E03.9 Hypothyroidism, unspecified; G43.909 Migraine, unspecified, not intractable, without status migrainosus; Z79.899 Other long term (current) drug therapy; Z79.01 Long term (current) use of anticoagulants; Z88.6 Allergy status to analgesic agent; Z88.2 Allergy status to sulfonamides
CPT/HCPCS: 80048; 83880; 85025; 85610; 85730; 87088; 81001 ×2; 36415; 71045; 93005; 93458; C1769 ×2; C1894; J3010; J7030; J1644 ×2; J2250; J3490 ×2; Q9967 ×2; A4215; A4222; A4221; A4663; A4216; A4606; Q9965; A4223 ×3; 99156; 99157; J0461

== ENCOUNTER 2023-03-29 11:06 | Emergency (ER) | payer OTHER, MEDICARE ==
[~2023-03-29] VITALS: Ht 162.6 cm; Wt 98.4 kg
[2023-03-29 11:46] VITALS: BP 169/92; PULSE 54; RESP 16; O2SAT 95
== END 2023-03-29 15:33 | disposition home or self-care (01) ==
LOC: EDH 11:06
DX: S80.01XA Contusion of right knee, initial encounter (principal); J44.9 Chronic obstructive pulmonary disease, unspecified; E78.00 Pure hypercholesterolemia, unspecified; E03.9 Hypothyroidism, unspecified; I10 Essential (primary) hypertension; Z79.82 Long term (current) use of aspirin; Z79.890 Hormone replacement therapy; Z79.899 Other long term (current) drug therapy; Z88.2 Allergy status to sulfonamides; Z88.5 Allergy status to narcotic agent; Z90.710 Acquired absence of both cervix and uterus; W18.39XA Other fall on same level, initial encounter; Y93.89 Activity, other specified; Y92.89 Other specified places as the place of occurrence of the external cause; Y99.8 Other external cause status
CPT/HCPCS: 73562; 93971

== ENCOUNTER 2024-09-29 13:32 | Emergency (ER) | payer OTHER, MEDICAID ==
[~2024-09-29] VITALS: Ht 162.6 cm; Wt 98.0 kg
[~2024-09-29 13:32] MED LIST changes: -AEC81 PO; -ALBU8.5H8 IH; +AMLO2.5T4 PO; +ASPI-1012 PO; +BACL5TAB PO; -CHOL2000 PO; +CITA-108 PO; -CITA40TA14 PO; -DOCU100C33 PO; +DONE10TA43 PO; +FE F1CAP8 PO; -FERR325T22 PO; -FOLI0.8T3 PO; -GARL1000 PO; -ISOS60TA77 PO; -LEVO50CA4 PO; +LEVO50CA5 PO; -MECL-226 PO; -MEMA10TA55 PO; -METO-391 PO; +MUPI15CR12 TP; -OMEG100014 PO; -ONDA-104 SL; +POTA-202 PO; -POTA-364 PO; +PROP20TA7 PO; +ROSU20TA98 PO; +SUMA50TA PO; +TRAZ150T79 PO
[2024-09-29] MEDS ORDERED: DICL20GE TP (13:51)
--- NOTE | 2024-09-29 13:51 | ERN ---
General Chief Complaint: Numbness Stated Complaint: BILATERAL HAND NUMBNESS X1.5 MONTHS Time Seen by MD: 13:36 Source: patient History of Present Illness Initial Comments Patient is a 79-year-old female coming in complaining of upper extremity distal in his per patient this has been going and a half. Patient was evaluated by PCP started on Neurontin for discomfort but states he can take it due to the effects she has with a it. Patient states that she is pending a visit with a hand specialist but was not able to get a proper evaluation due to equipment malfunction at the hand specialist place. Allergies: Coded Allergies: Sulfa (Sulfonamide Antibiotics) (Verified Allergy, Unknown, 06/19/18) codeine (Verified Allergy, Unknown, 06/19/18) Home Meds Reported Medications Rosuvastatin Calcium (Rosuvastatin Calcium) 20 Mg Tablet, 20 MG PO HS, TAB 06/02/24 Levothyroxine Sodium (Levothyroxine) 50 Mcg Capsule, 1 CAP PO ACBKFST for 30 Days, #30 CAP 0 Refills 06/02/24 Potassium Chloride (Potassium Chloride) 20 Meq Tab.er.prt, 1 TAB PO DAILY for 30 Days, #30 TAB 0 Refills 06/02/24 Mupirocin Calcium (Mupirocin) 2 % Cream..g., 1 APPL TP BID for 10 Days, #30 GM 0 Refills 06/02/24 Trazodone HCl (Trazodone HCl) 150 Mg Tablet, 1 TAB PO HS for 30 Days, #30 TAB 0 Refills 06/02/24 Citalopram Hydrobromide (Citalopram HBr) 40 Mg Tablet, 1 TAB PO DAILY for 30 Days, #30 TAB 0 Refills 06/02/24 Sumatriptan Succinate (Imitrex) 50 Mg Tablet, 1 TAB PO AD for headache for 30 Days, #9 TAB 0 Refills 06/02/24 Propranolol HCl (Propranolol HCl) 20 Mg Tablet, 1 TAB PO BID for 30 Days, #60 TAB 0 Refills 06/02/24 Baclofen (Baclofen) 5 Mg Tablet, 5 MG PO HS, TAB 06/02/24 Donepezil HCl (Donepezil HCl) 10 Mg Tablet, 1 TAB PO HS for 30 Days, #30 TAB 0 Refills 06/02/24 Fe Fumarate/FA/Mv, Min Comb#15 (Hemocyte Plus Capsule) 106 Mg Iron-1 Mg Capsule, 1 CAP PO DAILY for 30 Days, #30 CAP 0 Refills 06/02/24 Aspirin (ASPIRIN) 325 Mg Tablet, 81 MG PO DAILY, TAB 06/02/24 Amlodipine Besylate (Amlodipine Besylate) 2.5 Mg Tablet, 1 TAB PO DAILY for 30 Days, #30 TAB 0 Refills 06/02/24 Acetaminophen (Tylenol Extra Strength) 500 Mg Tablet, 500 MG PO AD PRN for PAIN, TAB 06/02/24 Nitroglycerin (Nitroglycerin) 0.4 Mg Tab.subl, 0.4 MG SL AD PRN for CHEST PAIN, TAB.SL 09/30/21 Past Medical History Past Medical History: Anemia, COPD, High Cholesterol, Hypertension, Hypothyroid, Renal Disese Medical History Other: KIDNEY CYST, Past Surgical History: Hysterectomy, Pacer/AICD Surgical History Other: BACK, EYELID, LT ANKLE, LT WRIST, HERNIA, MELANIE KNEE, MELANIE SHOULDER, Family History Family History: HTN Social History Social History: Negative, Lives alone ROS Dictation CONSTITUTIONAL: No chills, no fever, no weakness, no diaphoresis, no malaise. HEAD/FACE: No signs of trauma. EENT: No eye pain, no blurred vision, no tearing, no double vision, no ear pain, no ear discharge, no nose pain, no nasal congestion, no throat pain, no th roat swelling, no mouth pain. RESPIRATORY: No cough, no orthopnea, no SOB, no stridor, no wheezing. CARDIOVASCULAR: No chest pain, no edema, no palpitations, no syncope. GASTROINTESTINAL/ABDOMINAL: No abdominal pain, no constipation, no diarrhea, no nausea, no vomiting. GENITOURINARY: No abnormal discharge, no dysuria, no frequent urination, no hematuria. No complaints of pain in the genitals. MUSCULOSKELETAL: No back pain, no gout, joint pain, no joint swelling, muscle pain, no muscle stiffness, no neck pain. INTEGUMENTARY: No change in color, no change in hair/nails, no dryness, no lesion, no lumps, no rash. NEUROLOGICAL/PSYCH: No anxiety, not depressed, no emotional problem, no headache, no numbness, no pre-existing deficit, no history of seizures, no tremors, no weakness. HEMATOLOGIC/LYMPHATIC: Not anemic, no history of blood clots, no apparent bleeding, no bruising, glands not swollen. All Systems Negative, Except as Noted. Physical Exam Physical Exam Dictation VITAL SIGNS: Reviewed. GENERAL APPEARANCE: Alert, oriented x3, no acute distress, obese. HEAD AND FACE: Non-traumatic. EYES: PERRL, pink conjunctivas, eyelid no trauma, anterior chamber clear. EARS: Pinnas intact and no signs of trauma or erythema. Ear canals clear and no discharge. TMs no erythema. NOSE: No discharge, no bleeding. OROPHARYNX: Mouth normal, teeth no caries, tongue pink. Pharynx clear, no erythema. Tonsils no exudates, no abscesses noted. Mucous membrane moist. NECK: Supple, non-tender, no thyromegaly, no masses, no JVD, no bruits. BREAST: Deferred. CHEST: No tenderness, no crepitus, no paradoxical movement, no retractions. LUNGS: Clear, well-ventilated, symmetric, no rales, no wheezing, no rhonchi, no stridor, good breath sounds bilaterally. HEART: Regular rate, regular rhythm, no murmur, no gallops. VASCULAR: No peripheral edema. ABDOMEN: Soft, positive bowel sounds, nondistended, no guarding, nontender, no rebound, no masses no hepatomegaly, no splenomegaly, no Rogel's sign, no hernias. RECTAL: Deferred. GENITAL: Deferred. NEUROLOGICAL: Normal speech, gross motor function intact, gross sensory function intact. MUSCULOSKELETAL: Neck nontender, full range of motion, back nontender, full range of motion. EXTREMITIES: Nontender, full range of motion. Carpal tunnel tenderness on palpation, positive Tinel sign on bilateral wrist, positive Phalen test on bilateral wrists, positive reverse Phalen's test SKIN: Color pink, dry, no turgor, no rash, no lacerations, no abrasions, no contusions. LYMPHATICS: Deferred. Results Laboratory and Microbiology Labs Reviewed?: Yes MDM MDM: Differential diagnosis: Supple tunnel syndrome, neuropathy, Rationale: Tests considered and ordered secondary to shared decision making include: Previous outside records reviewed: Old ER visits. Risk of complication and/or morbidity or mortality of patient management: None Medications-Per medication reconciliation Need for hospitalization: Patient does not meet criteria for hospitalization. Patient is a 79-year-old female coming in complaining of bilateral upper extremities numbness and tenderness. Patient states that this has been ongoing for a month and a half. Patient is pending re-evaluation by hand specialist. On physical exam patient is tender on the carpal tunnel region tapping of the c arpal tunnel elicits pain, Phalen test positive both possible and reverse test. Splints were applied to bilateral wrists I did advised him appropriate follow up with the specialist angelita technique help with the inflammation. ED Course Vital Signs Date Time Temp Pulse Resp B/P (MAP) Pulse Ox O2 Delivery O2 Flow Rate FiO2 09/29/24 13:33 98.1 71 16 159/91 97 Room Air 0 DX & DISP Disposition: Discharge Departure Impression: Primary Impression: Carpal tunnel syndrome on both sides Condition: Stable Scripts Diclofenac Sodium (Voltaren Arthritis Pain) 1 % Gel..gram. 5 GM TP BID for 14 Days, #1 TUBE Prov: GUANAKO FLORES MD 09/29/24 Additional Instructions: FOLLOW-UP WITH PRIMARY CARE PROVIDER IN 1 TO 2 DAYS. TAKE MEDICATIONS DIRECTED HERE IN THE EMERGENCY ROOM. OKAY TO CONTINUE HOME MEDICATIONS UNLESS OTHERWISE DISCUSSED DURING YOUR VISIT IN THE EMERGENCY ROOM TODAY. RETURN TO YOUR NEAREST EMERGENCY ROOM IF SYMPTOMS WORSEN OR IF THERE IS NO IMPROVEMENT. CALL 911 IF YOU NEED IMMEDIATE ASSISTANCE. TAKE TYLENOL [id number] NEEDED AND IF NO CONTRAINDICATIONS ARE PRESENT. INCREASE ORAL HYDRATION. A WOUND CULTURE OR URINE CULTURE WAS ORDERED HERE IN THE EMERGENCY ROOM DEPARTMENT PLEASE FOLLOW-UP WITH PRIMARY CARE PROVIDER AND ADVISE THEM TO GET REPORTS FROM OUR FACILITY. IF YOU HAD ANY OSEI WRAP/SPLINTS THAT WERE APPLIED HERE, PLEASE DO NOT REMOVE THEM UNTIL YOU SEE YOUR PRIMARY CARE OR SPECIALTY. Referrals: Referrals: CODY FIERRO MD (PCP) TRUDY KAY MD Time of Disposition: 13:50 GUANAKO FLORES MD Sep 29, 2024 13:51
--- NOTE | 2024-09-29 13:57 | NUR ---
BILATERAL PRE FABRICATED WRIST SPLINTS PLACED PER ORDER
[2024-09-29 14:20] VITALS: BP 163/91; PULSE 77; RESP 14; TEMP 98.1; O2SAT 98
== END 2024-09-29 14:44 | disposition home or self-care (01) ==
LOC: EDH 13:32
DX: G56.03 Carpal tunnel syndrome, bilateral upper limbs (principal); J44.9 Chronic obstructive pulmonary disease, unspecified; E03.9 Hypothyroidism, unspecified; E78.00 Pure hypercholesterolemia, unspecified; I10 Essential (primary) hypertension; Z79.82 Long term (current) use of aspirin; Z79.899 Other long term (current) drug therapy; Z88.2 Allergy status to sulfonamides; Z88.5 Allergy status to narcotic agent; Z90.710 Acquired absence of both cervix and uterus; Z95.810 Presence of automatic (implantable) cardiac defibrillator
CPT/HCPCS: 29125; 99282; 99283

== ENCOUNTER 2024-10-13 14:32 | Emergency (ER) | payer OTHER, MEDICAID ==
[~2024-10-13] VITALS: Ht 162.6 cm; Wt 93.0 kg
[~2024-10-13 14:32] MED LIST changes: +DICL20GE TP
--- NOTE | 2024-10-13 14:45 | ERN ---
General Chief Complaint: Other Problems Stated Complaint: FELL ON CHEST Time Seen by MD: 14:35 Source: patient History of Present Illness Initial Comments PATIENT IS A 71 FEMALE COMING IN COMPLAINING OF CHEST PATIENT STATES HE FELL DOWN YESTERDAY HITTING HERSELF IN THE STERNAL REGION. SHE WAS CONCERNED BECAUSE HER PCP EVALUATED HER AND NOTICED ECCHYMOSIS ON THE ANTERIOR PORTION OF HER CHEST. PAIN IS EXACERBATED WITH MOVEMENT AND BREATHING. Allergies: Coded Allergies: Sulfa (Sulfonamide Antibiotics) (Verified Allergy, Unknown, 06/19/18) codeine (Verified Allergy, Unknown, 06/19/18) Home Meds Active Scripts Diclofenac Sodium (Voltaren Arthritis Pain) 1 % Gel..gram., 5 GM TP BID for 14 Days, #1 TUBE Prov:GUANAKO FLORES MD 09/29/24 Reported Medications Rosuvastatin Calcium (Rosuvastatin Calcium) 20 Mg Tablet, 20 MG PO HS, TAB 06/02/24 Levothyroxine Sodium (Levothyroxine) 50 Mcg Capsule, 1 CAP PO ACBKFST for 30 Da ys, #30 CAP 0 Refills 06/02/24 Potassium Chloride (Potassium Chloride) 20 Meq Tab.er.prt, 1 TAB PO DAILY for 30 Days, #30 TAB 0 Refills 06/02/24 Mupirocin Calcium (Mupirocin) 2 % Cream..g., 1 APPL TP BID for 10 Days, #30 GM 0 Refills 06/02/24 Trazodone HCl (Trazodone HCl) 150 Mg Tablet, 1 TAB PO HS for 30 Days, #30 TAB 0 Refills 06/02/24 Citalopram Hydrobromide (Citalopram HBr) 40 Mg Tablet, 1 TAB PO DAILY for 30 Days, #30 TAB 0 Refills 06/02/24 Sumatriptan Succinate (Imitrex) 50 Mg Tablet, 1 TAB PO AD for headache for 30 Days, #9 TAB 0 Refills 06/02/24 Propranolol HCl (Propranolol HCl) 20 Mg Tablet, 1 TAB PO BID for 30 Days, #60 TAB 0 Refills 06/02/24 Baclofen (Baclofen) 5 Mg Tablet, 5 MG PO HS, TAB 06/02/24 Donepezil HCl (Donepezil HCl) 10 Mg Tablet, 1 TAB PO HS for 30 Days, #30 TAB 0 Refills 06/02/24 Fe Fumarate/FA/Mv, Min Comb#15 (Hemocyte Plus Capsule) 106 Mg Iron-1 Mg Capsule, 1 CAP PO DAILY for 30 Days, #30 CAP 0 Refills 06/02/24 Aspirin (ASPIRIN) 325 Mg Tablet, 81 MG PO DAILY, TAB 06/02/24 Amlodipine Besylate (Amlodipine Besylate) 2.5 Mg Tablet, 1 TAB PO DAILY for 30 Days, #30 TAB 0 Refills 06/02/24 Acetaminophen (Tylenol Extra Strength) 500 Mg Tablet, 500 MG PO AD PRN for PAIN, TAB 06/02/24 Nitroglycerin (Nitroglycerin) 0.4 Mg Tab.subl, 0.4 MG SL AD PRN for CHEST PAIN, TAB.SL 09/30/21 Past Medical History Past Medical History: High Cholesterol, Hypertension, Renal Disese Medical History Other: KIDNEY CYST, Past Surgical History: Appendectomy, Hysterectomy, Cholecystectomy Surgical History Other: BACK, EYELID, LT ANKLE, LT WRIST, HERNIA, MELANIE KNEE, MELANIE SHOULDER, Family History Family History: HTN Social History Social History: Negative, Lives alone ROS Dictation CONSTITUTIONAL: NO CHILLS, NO FEVER, NO WEAKNESS, NO DIAPHORESIS, NO MALAISE. HEAD/FACE: NO SIGNS OF TRAUMA. EENT: NO EYE PAIN, NO BLURRED VISION, NO TEARING, NO DOUBLE VISION, NO EAR PAIN, NO EAR DISCHARGE, NO NOSE PAIN, NO NASAL CONGESTION, NO THROAT PAIN, NO THROAT SWELLING, NO MOUTH PAIN. RESPIRATORY: NO COUGH, NO ORTHOPNEA, NO SOB, NO STRIDOR, NO WHEEZING. CARDIOVASCULAR: NO CHEST PAIN, NO EDEMA, NO PALPITATIONS, NO SYNCOPE. GASTROINTESTINAL/ABDOMINAL: NO ABDOMINAL PAIN, NO CONSTIPATION, NO DIARRHEA, NO NAUSEA, NO VOMITING. GENITOURINARY: NO ABNORMAL DISCHARGE, NO DYSURIA, NO FREQUENT URINATION, NO HEMATURIA. NO COMPLAINTS OF PAIN IN THE GENITALS. MUSCULOSKELETAL: NO BACK PAIN, NO GOUT, NO JOINT PAIN, NO JOINT SWELLING, NO MUSCLE PAIN, NO MUSCLE STIFFNESS, NO NECK PAIN. INTEGUMENTARY: NO CHANGE IN COLOR, NO CHANGE IN HAIR/NAILS, NO DRYNESS, NO LESION, NO LUMPS, NO RASH. NEUROLOGICAL/PSYCH: NO ANXIETY, NOT DEPRESSED, NO EMOTIONAL PROBLEM, NO HEADACHE, NO NUMBNESS, NO PRE-EXISTING DEFICIT, NO HISTORY OF SEIZURES, NO TREMORS, NO WEAKNESS. HEMATOLOGIC/LYMPHATIC: NOT ANEMIC, NO HISTORY OF BLOOD CLOTS, NO APPARENT BLEEDING, NO BRUISING, GLANDS NOT SWOLLEN. ALL SYSTEMS NEGATIVE, EXCEPT NOTED. Physical Exam Physical Exam Dictation VITAL SIGNS: REVIEWED. GENERAL APPEARANCE: ALERT, ORIENTED X3, NO ACUTE DISTRESS, OBESE. HEAD AND FACE: NON-TRAUMATIC. EYES: PERRL, PINK CONJUNCTIVAS, EYELID NO TRAUMA, ANTERIOR CHAMBER CLEAR. EARS: PINNAS INTACT AND NO SIGNS OF TRAUMA OR ERYTHEMA. EAR CANALS CLEAR AND NO DISCHARGE. TMS NO ERYTHEMA. NOSE: NO DISCHARGE, NO BLEEDING. OROPHARYNX: MOUTH NORMAL, TEETH NO CARIES, TONGUE PINK. PHARYNX CLEAR, NO ERYTHEMA. TONSILS NO EXUDATES, NO ABSCESSES NOTED. MUCOUS MEMBRANE MOIST. NECK: SUPPLE, NON-TENDER, NO THYROMEGALY, NO MASSES, NO JVD, NO BRUITS. BREAST: DEFERRED. CHEST: NO TENDERNESS, NO CREPITUS, NO PARADOXICAL MOVEMENT, NO RETRACTIONS. LUNGS: CLEAR, WELL-VENTILATED, SYMMETRIC, NO RALES, NO WHEEZING, NO RHONCHI, NO STRIDOR, GOOD BREATH SOUNDS BILATERALLY. HEART: REGULAR RATE, REGULAR RHYTHM, NO MURMUR, NO GALLOPS. VASCULAR: NO PERIPHERAL EDEMA. ABDOMEN: SOFT, POSITIVE BOWEL SOUNDS, NONDISTENDED, NO GUARDING, NONTENDER, NO REBOUND, NO MASSES NO HEPATOMEGALY, NO SPLENOMEGALY, NO MILLS'S SIGN, NO HERNIAS. RECTAL: DEFERRED. GENITAL: DEFERRED. NEUROLOGICAL: NORMAL SPEECH, GROSS MOTOR FUNCTION INTACT, GROSS SENSORY FUNCTION INTACT. MUSCULOSKELETAL: NECK NONTENDER, FULL RANGE OF MOTION, BACK NONTENDER, FULL RANGE OF MOTION. EXTREMITIES: NONTENDER, FULL RANGE OF MOTION. SKIN: COLOR PINK, DRY, NO TURGOR, NO RASH, NO LACERATIONS, NO ABRASIONS, NO CO NTUSIONS. LYMPHATICS: DEFERRED. Results Laboratory and Microbiology Lab and Micro Result Laboratory Tests Test 10/13/24 15:24 White Blood Count 7.6 K/uL (4.8-10.8) Red Blood Count 2.90 MIL/uL (4.00-5.50) L Hemoglobin 9.8 g/dL (12.0-16.0) L Hematocrit 30.4 % (36-48) L Mean Corpuscular Volume 104.8 fL (79-99) H Mean Corpuscular Hemoglobin 33.8 pg (27.0-33.0) H Mean Corpuscular Hemoglobin Concent 32.2 g/dL (32.0-36.0) Red Cell Distribution Width 14.5 % (11.0-15.5) Platelet Count 109 K/uL (130-400) L Mean Platelet Volume 10.3 fL (7.5-10.5) Immature Granulocyte % (Auto) 0.4 % (0-1) Neutrophils (%) (Auto) 76.8 % (40.0-77.0) Lymphocytes (%) (Auto) 14.0 % (21.0-51.0) L Monocytes (%) (Auto) 8.8 % (3.0-13.0) Eosinophils (%) (Auto) 0.0 % (0.0-8.0) Basophils (%) (Auto) 0.0 % (0.0-5.0) Neutrophils # (Auto) 5.9 K/uL (1.8-7.7) Lymphocytes # (Auto) 1.1 K/uL (1.0-4.8) Monocytes # (Auto) 0.7 K/uL (0.1-1.0) Eosinophils # (Auto) 0.00 K/uL (0.00-0.70) Basophils # (Auto) 0.00 K/uL (0.00-0.20) Absolute Immature Granulocyte (auto 0.03 K/uL (0-1) Nucleated Red Blood Cells 0.0 % (0.0-0.19) Sodium Level 143 mmol/L (136-145) Potassium Level 4.1 mmol/L (3.5-5.1) Chloride Level 109 mmol/L (101-111) Carbon Dioxide Level 26 mmol/L (21-32) Blood Urea Nitrogen 24 mg/dL (7-18) H Creatinine 1.8 mg/dL (0.5-1.0) H Glomerular Filtration Rate Calc 28 mL/min (>90) Random Glucose 110 mg/dL (70-105) H Total Calcium 8.6 mg/dL (8.5-10.1) Total Creatine Kinase 180 U/L (21-232) Troponin I High Sensitivity 21 ng/L (4-50) Labs Reviewed?: Yes EKG/XRAY/US/CT/MRI EKG Comment 10/13/2024 TIME 2:40 P.M. VENTRICULAR RATE [address] WAVE ELEVATION OR DEPRESSION CT Scan Comment [facility] [address] [place], [place] [address] IMAGING REPORT Signed PATIENT: MARILEE SANDHU MR#: [id number] : 1945 SEX: F AGE: 79 LOCATION: [facility] ORDER [id number] STATUS: REG ER REPORT#: [id number] SERVICE 161 REASON: CHEST PAIN ORDERING PHYSICIAN: GUANAKO FLORES MD PROCEDURE: CHEST WO - CT CHEST W/O CONTRAST EXAM: CT Chest Without IV contrast. CLINICAL HISTORY: CHEST PAIN TECHNIQUE: Axial computed tomography images of the chest without intravenous contrast. COMPARISON: None provided. FINDINGS: LUNGS: Emphysematous lung changes No infiltrate/consolidation PLEURAL SPACES: No pneumothorax evident. No pleural effusions. HEART: No cardiomegaly. No significant pericardial effusion. LYMPH NODES: No lymphadenopathy is evident. UPPER ABDOMEN: The upper abdominal solid organs are unremarkable. BONES: No acute osseous abnormality. MISCELLANEOUS: 42 mm ascending thoracic aortic aneurysm incidentally noted IMPRESSION: 1. Emphysematous lung changes 2. No infiltrate/consolidation 3. 42 mm ascending thoracic aortic aneurysm incidentally noted /[place] DICTATED BY: DONALD WATTS MD DATE: 10/13/241925 ELECTRONICALLY SIGNED BY: DONALD WATTS MD DATE: 10/13/241925 [facility] MDM: DIFFERENTIAL DIAGNOSIS: Fall, chest pressure, RATIONALE: TESTS CONSIDERED AND ORDERED SECONDARY TO SHARED DECISION MAKING INCLUDE: PREVIOUS OUTSIDE RECORDS REVIEWED: OLD ER VISITS. RISK OF COMPLICATION AND/OR MORBIDITY OR MORTALITY OF PATIENT MANAGEMENT: NONE MEDICATIONS-PER MEDICATION RECONCILIATION NEED FOR HOSPITALIZATION: PATIENT DOES NOT MEET CRITERIA FOR HOSPITALIZATION. NEED FOR EMERGENCY MAJOR/MINOR SURGERY: NO Patient is a 79-year-old female coming in complaining of chest discomfort after she fell down a couple of days ago. CT did not disclose acute findings no acute findings were present. Patient will be discharged in stable condition with a diagnosis of fall with acute costochondritis/acute chest wall pain ED Course Orders Procedure Category Date Status Time 12 Lead Ekg Tracing- EKG 10/13/24 Logged Technical 14:40 Cbc With Differential LAB 10/13/24 Complete 14:40 Chest 1vw RAD 10/13/24 Taken 14:40 12 Lead Ekg Tracing- EKG 10/13/24 Logged Technical 14:40 Creatine Kinase, Total LAB 10/13/24 Complete 14:40 Troponin I High LAB 10/13/24 Complete Sensitivity 14:40 Basic Metabolic Panel LAB 10/13/24 Complete 14:40 Ct Chest W/O Contrast CT 10/13/24 Resulted 16:12 Vital Signs Date Time Temp Pulse Resp B/P (MAP) Pulse Ox O2 Delivery O2 Flow Rate FiO2 10/13/24 14:35 98.1 63 19 160/91 99 Room Air 0 DX & DISP Disposition: Discharge Departure Impression: Primary Impression: Fall from ground level Additional Impression: Chest wall pain Condition: Stable Additional Instructions: You have been reviewed in the emergency department at [facility] after presenting with chest pain. After considering your history, your risk factors, your EKG and your blood test troponins, have been found to be at very low risk less than (1 in 100) of having a major adverse cardiac event (like heart attack) in the near future. In the " low risk" group, the risks of doing further tests and treatment as the inpatient outweighs the benefits. In many patients in the low risk group for the test of any sort or unnecessary, however he should discuss this further with his general practitioner who will understand the medical and personal backgrounds better. Because we have never declared you" no risk" we would suggest. 1 returning for medical review if you have further episodes of chest pain/arm pain or other concerning symptoms like dizziness, collapse, palpitations or shortness of breath. 2. Following up with your local doctor who will consider the need for further testing and will also ensure that any modifiable risk factors you may have for heart disease are optimally managed. Patient will be discharged in stable condition at the moment discharge patient states , no chest pain Referrals: CODY FIERRO MD (PCP) Time of Disposition: 18:53 GUANAKO FLORES MD Oct 13, 2024 14:45
[2024-10-13 15:34] LABS: IMMATURE GRANULOCYTE ABSOLUTE 0.03 K/uL (0-1); NUCLEATED RED BLOOD CELLS 0.0 % (0.0-0.19); PLATELET COUNT (AUTO) 109 K/uL (130-400); RED BLOOD CELL COUNT(AUTO) 2.90 MIL/uL (4.00-5.50); RED CELL DISTRIBUTION WIDTH 14.5 % (11.0-15.5); WHITE BLOOD COUNT (AUTO) 7.6 K/uL (4.8-10.8)
[2024-10-13 15:45] LABS: CREATININE 1.8 mg/dL (0.5-1.0); GLOMERULAR FILTR. RATE CALC 28.0 mL/min (>90); GLUCOSE,RANDOM 110.0 mg/dL (70-105); SODIUM SERUM 143.0 mmol/L (136-145); UREA NITROGEN, BLOOD 24.0 mg/dL (7-18)
[2024-10-13 15:50] LABS: CREATINE KINASE, TOTAL 180.0 U/L (21-232)
--- NOTE | 2024-10-13 18:27 | HMCIMG ---
EXAM: CT Chest Without IV contrast. CLINICAL HISTORY: CHEST PAIN TECHNIQUE: Axial computed tomography images of the chest without intravenous contrast. COMPARISON: None provided. FINDINGS: LUNGS: Emphysematous lung changes No infiltrate/consolidation PLEURAL SPACES: No pneumothorax evident. No pleural effusions. HEART: No cardiomegaly. No significant pericardial effusion. LYMPH NODES: No lymphadenopathy is evident. UPPER ABDOMEN: The upper abdominal solid organs are unremarkable. BONES: No acute osseous abnormality. MISCELLANEOUS: 42 mm ascending thoracic aortic aneurysm incidentally noted IMPRESSION: 1. Emphysematous lung changes 2. No infiltrate/consolidation 3. 42 mm ascending thoracic aortic aneurysm incidentally noted /[place]
[2024-10-13 20:58] VITALS: BP 150/82; PULSE 60; RESP 16; TEMP 98.1; O2SAT 98
--- NOTE | 2024-10-14 09:38 | EKG ---
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 : 1945 Requested By: GUANAKO FLORES Order Number: [id number] Reading MD: Austin Bean Measurements Intervals [place] Rate: 60 P: -57 ID: [id number] QRS: 0 QRSD: 104 T: 85 QT: 504 QTc: 504 Interpretive Statements Sinus or ectopic atrial rhythm Low voltage, precordial leads Nonspecific T abnrm, anterolateral leads Prolonged QT interval Compared to ECG 06/01/2024 09:59:41 Ectopic atrial rhythm now present Low QRS voltage now present Prolonged QT interval now present Sinus bradycardia no longer present First degree AV block no longer present Electronically Signed On 10-15-2024 10:57:22 CDT by Austin Bean Please click the below link to view image of tracing.
== END 2024-10-13 21:02 | disposition home or self-care (01) ==
LOC: EDH 14:32
DX: S20.219A Contusion of unspecified front wall of thorax, initial encounter (principal); E78.00 Pure hypercholesterolemia, unspecified; I10 Essential (primary) hypertension; Z79.1 Long term (current) use of non-steroidal anti-inflammatories (NSAID); Z79.82 Long term (current) use of aspirin; Z79.899 Other long term (current) drug therapy; Z88.2 Allergy status to sulfonamides; Z88.5 Allergy status to narcotic agent; Z90.49 Acquired absence of other specified parts of digestive tract; Z90.710 Acquired absence of both cervix and uterus; W18.39XA Other fall on same level, initial encounter; Y93.89 Activity, other specified; Y92.89 Other specified places as the place of occurrence of the external cause; Y99.8 Other external cause status
CPT/HCPCS: 36415; 71045; 71250; 80048; 82550; 84484; 85025; 93005; 99285